=== PATIENT | male | born 1945 | race Caucasian/White ===

== ENCOUNTER 2022-06-29 16:57 | Emergency (ER) | payer MEDICARE, SELFPAY ==
[2022-06-29 17:05] VITALS: BP 162/63; PULSE 68; RESP 18; TEMP 36.4; O2SAT 99; BMI 21.3
--- NOTE | 2022-06-29 17:37 | ED_ITS ---
HPI - Dental/Oral General Time Seen by Provider: 17:37 Date Seen: 06/29/22 Chief complaint: Dental/Oral/Mouth Injury/Pain Stated complaint: Tooth pain, Possible cracked tooth Time Seen by Provider: 06/29/22 17:08 Source: patient and RN notes reviewed Mode of arrival: ambulatory Limitations: no limitations History of Present Illness HPI Narrative: Patient is a 76-year-old gentleman coming in with severe right lower dental pain. It has been problematic in getting worse. He admits he has not seen a dentist for 5 years and is a diabetic. He has felt nauseated due to the pain. There is a broken molar on his right lower posterior jaw that is hurting. No definite fever noted, maybe felt hot last night. His tried some Tylenol he has tried a all day pain reliever but does not know at the name of it was, tried some Aleve. He does have an penicillin allergy. Denies any acute trauma. MD Complaint: tooth pain Related Data Previous Rx's Medication Instructions Recorded clindamycin HCl 150 mg capsule 150 mg PO TID #20 caps 06/29/22 Allergies Allergy/AdvReac Type Severity Reaction Status Date / Time Penicillins Allergy Mild Rash Verified 06/29/22 17:04 Review of Systems Narrative: As per HPI PFSH PFSH Social History Smoking Status: Current every day smoker What tobacco products do you use: cigarettes Do you use any of these nicotine containing products: None Second hand tobacco smoke exposure: No How often do you have a drink containing alcohol: 4 or more times a week How many standard drinks containing alcohol do you have on a typical day: 1 or 2 How often do you have six or more drinks on one occasion: Never AUDIT-C Alcohol total score: 4 Non-prescribed substance use: denies use service: No Exam Const: Vital Signs, click to edit/add: Vital Signs - 24 hr 06/29/22 17:05 Temperature 97.5 F L Pulse Rate [Pulse Oximeter] 68 Respiratory Rate 18 Blood Pressure [Ri ght Upper Arm] 162/63 H Pulse Oximetry 99 Oxygen Delivery Me thod Room Air Documenting provider has reviewed patient's vital signs: yes Other: Patient is a slender 76-year-old gentleman hanging onto his right lower jaw, seems uncomfortable but is certainly pleasant with me. HENMT: Common normals: normocephalic, head/scalp atraumatic and external nose normal Head and scalp: normocephalic and atraumatic Nose: external nose normal Other: Multiple eroded dentition down to the gumline, multiple cracked teeth. The particular tooth is his right lower back molar, medial portion cracked off, no significant surrounding erythema but this is the tooth that is tender. It is tender on compression. Certainly no evidence of any abscess. Eye: Common normals: PERRL, EOMs intact bilaterally, conjunctivae normal and n o scleral icterus Conjunctiva: conjunctiva(e) normal Pupil: PERRL Neck & C-Spine: Common normals: full ROM, no lymphadenopathy and supple Cardio: Common normals: regular rate, regular rhythm, S1 normal heart sound, S2 normal heart sound, no gallops, no clicks and no murmurs Rate: regular rate Rhythm: regular rhythm Heart sounds: S1 normal and S2 normal Course Course Hospital Course: Will give him a dose of clindamycin 150 mg orally here as we do not have this in our machine for dispensing. Will initiate a dose of oxycodone orally here. Vital Signs Vital signs: Initial Vital Signs Temperature 97.5 F L 06/29/22 17:05 Temperature Source Temporal Artery Scan 06/29/22 17:05 Pulse Rate 68 06/29/22 17:05 Pulse Rhythm 06/29/22 17:05 Respiratory Rate 18 06/29/22 17:05 Blood Pressure 162/63 H 06/29/22 17:05 Blood Pressure Mean 96 06/29/22 17:05 Blood Pressure Position Supine 06/29/22 17:05 Pulse Oximetry 99 06/29/22 17:05 Oxygen Delivery Method 06/29/22 17:05 Vital Signs Temperature 97.5 F L 06/29/22 17:05 Pulse Rate 68 06/29/22 17:05 Respiratory Rate 18 06/29/22 17:05 Blood Pressure 162/63 H 06/29/22 17:05 Pulse Oximetry 99 06/29/22 17:05 Oxygen Delivery Method 06/29/22 17:05 Temperature 97.5 F L 06/29/22 17:05 Pulse Rate 68 06/29/22 17:05 Respiratory Rate 18 06/29/22 17:05 Blood Pressure 162/63 H 06/29/22 17:05 Pulse Oximetry 99 06/29/22 17:05 Oxygen Delivery Method 06/29/22 17:05 Critical Care Time Critical Care Time Critical Care Time: No Discharge Plan Discharge Clinical Impression: Broken teeth, Pain, dental Patient Disposition: Home, Self-Care Condition: Stable Instructions: Toothache (ED) Additional Instructions: Take Tylenol 1000 mg 3 times a day baseline for pain. If you have no kidney disease, have not been told that you cannot take NSAIDs, can add in ibuprofen per bottle directions. Have given you a prescription from [facility] for oxycodone, follow-up prescription for severe pain for this. Ten tablets prescribed, if you need further pain management, will need to talk to her primary care doctor or preferably get into a dentist. We will start you on antibiotics to cover for infection. You will need to take your next dose tomorrow morning. It is imperative that you get to a dentist to have this taking care of, that will be the only way to fully treat this. Prescriptions: New clindamycin HCl 150 mg capsule 150 mg PO TID Qty: 20 0RF Stand Alone Forms: [facility] Info Instructions
[2022-06-29] MEDS: OXYCODONE 5 MG TABLET PO (18:26)
[2022-06-29] MEDS: CLINDAMYCIN 150 MG CAPSULE PO (18:27)
== END 2022-06-29 18:32 | disposition home or self-care (01) ==
PROVIDERS: Emergency Provider Family Medicine
DX: K03.81 Cracked tooth (principal)
CPT/HCPCS: 99283; 99284; A9270